=== PATIENT | male | born 1970 | race African-American/Black ===

== ENCOUNTER 2016-12-13 14:18 | Emergency (ER) | payer OTHER ==
[~2016-12-13] VITALS: Ht 188 cm; Wt 112.4 kg
[~2016-12-13 14:18] MED LIST: CLINDAMYCIN HC150 MG PO; DILAUDID2 MG PO; MOTRIN800 MG PO; NAPROSYN500 MG PO; NORCO 5/3251 TABLET PO; PERCOCET 5/31 TABLET PO; TORADOL10 MG PO; ULTRAM50 MG PO; ZOFRAN4 MG PO
[2016-12-13] MEDS ORDERED: NAPROSYN500 MG PO (15:17)
[2016-12-13 15:39] VITALS: BP 147/80
== END 2016-12-13 15:40 | disposition home or self-care (01) ==
LOC: EME 14:18
DX: M76.891 Other specified enthesopathies of right lower limb, excluding foot (principal); M76.892 Other specified enthesopathies of left lower limb, excluding foot; F17.200 Nicotine dependence, unspecified, uncomplicated
CPT/HCPCS: 99281; 99284